=== PATIENT | female | born 1965 | race Caucasian/White ===

== ENCOUNTER 2024-09-20 06:26 | Outpatient (CLI) | payer BC, SELFPAY ==
--- NOTE | 2024-09-20 07:43 | P.ANES_ITS ---
Anesthesia Charges Start Date/Time Anesthesia Start Date: 09/20/24 Anesthesia Start Time: 07:10 Stop Date/Time Anesthesia Stop Date: 09/20/24 Anesthesia Stop Time: 07:37 Coding CPT Codes CPT Codes: MANUELITO LWR INTST NDNJ NOS - [id number] ([id number]) P1 - NORMAL HEALTHY PATIENT, QX - CHILD CARE EDUCATION COORDINATOR SVJaneth W/ MED DIRECTION, QK - COMMERCIAL PEST CONTROL TECHNICIAN 2-4 CNCRNT MANUELITO PROC
--- NOTE | 2024-09-20 07:43 | W.ANESCHARGE ---
Anesthesia Charges Start Date/Time Anesthesia Start Date: 09/20/24 Anesthesia Start Time: 07:10 Stop Date/Time Anesthesia Stop Date: 09/20/24 Anesthesia Stop Time: 07:37 Coding CPT Codes CPT Codes: MANUELITO LWR INTST NDCA NOS - [id number] ([id number]) P1 - NORMAL HEALTHY PATIENT, QX - RADIO SCRIPT WRITER SVJaneth W/ MED DIRECTION, QK - HUMAN RESOURCES INTERN 2-4 CNCRNT MANUELITO PROC
--- NOTE | 2024-09-20 07:59 | P.ANES_ITS ---
Anesthesia Charges Start Date/Time Anesthesia Start Date: 09/20/24 Anesthesia Start Time: 07:10 Stop Date/Time Anesthesia Stop Date: 09/20/24 Anesthesia Stop Time: 07:37 Coding CPT Codes CPT Codes: MANUELITO LWR INTST NDPA NOS - [id number] ([id number]) P1 - NORMAL HEALTHY PATIENT, QK - MERCHANDISING CONSULTANT 2-4 CNCRNT ANES PROC, QX - POT SANDER SVC W/ MED DIRECTION
--- NOTE | 2024-09-20 07:59 | W.ANESCHARGE ---
Anesthesia Charges Start Date/Time Anesthesia Start Date: 09/20/24 Anesthesia Start Time: 07:10 Stop Date/Time Anesthesia Stop Date: 09/20/24 Anesthesia Stop Time: 07:37 Coding CPT Codes CPT Codes: MANUELITO LWR INTST NDKY NOS - [id number] ([id number]) P1 - NORMAL HEALTHY PATIENT, QK - HOME HOSPICE AIDE 2-4 CNCRNT ANES PROC, QX - CIGAR PATCHER SVC W/ MED DIRECTION
== END 2024-09-20 06:27 | disposition home or self-care (01) ==
LOC: OP CLINIC 06:30
PROVIDERS: PCP Family Medicine; Visit Provider Internal Medicine Gastroenterology
DX: Z12.11 Encounter for screening for malignant neoplasm of colon (principal); Z86.0101 Personal history of adenomatous and serrated colon polyps; D12.5 Benign neoplasm of sigmoid colon
CPT/HCPCS: 00811; 00812; 45380; 88305; J2704